=== PATIENT | female | born 2000 | race Caucasian/White ===

== ENCOUNTER 2023-01-29 16:20 | Outpatient (CLI) | payer BC, SELFPAY ==
[2023-01-29 23:02] LABS: Chlamydia DNA Amplified* NOT DETECTED (No Detected); GC DNA Amplified* NOT DETECTED (No Detected)
== END 2023-01-29 16:21 | disposition home or self-care (01) ==
LOC: LKVREF 16:28
PROVIDERS: PCP Nurse Practitioner Family; Visit Provider Nurse Practitioner Family
DX: R30.0 Dysuria (principal); L29.2 Pruritus vulvae
CPT/HCPCS: 87491; 87591